=== PATIENT | male | born 1990 | race Caucasian/White ===

== ENCOUNTER 2019-03-09 01:33 | Emergency (ER) | payer OTHER ==
[~2019-03-09] VITALS: Ht 172.7 cm; Wt 75.6 kg
[2019-03-09 01:41] VITALS: BP 130/72; PULSE 65; RESP 18; Ht 172.7 cm; Wt 75.6 kg
[2019-03-09] MEDS ORDERED: METH750T93 PO (03:20)
[2019-03-09] MEDS ORDERED: ACET-141 PO (03:20)
[2019-03-09] MEDS ORDERED: IBUP-1542 PO (03:20)
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
== END 2019-03-09 03:35 | disposition home or self-care (01) ==
LOC: FTE 01:33
DX: S40.812A Abrasion of left upper arm, initial encounter (principal); S19.9XXA Unspecified injury of neck, initial encounter; V49.49XA Driver injured in collision with other motor vehicles in traffic accident, initial encounter
CPT/HCPCS: 99283